=== PATIENT | female | born 1940 | race Caucasian/White ===

== ENCOUNTER 2017-01-26 13:01 | Emergency (ER) | payer MEDICARE, OTHER ==
[2017-01-26] MEDS ORDERED: PROPARACAINE HCL OPTH 15ML BTL OPTH ONE (13:27)
--- NOTE | 2017-01-26 13:37 | Emergency Department Record ---
History of Present Illness - General Chief complaint: Eye Problem Stated complaint: EYE PAIN Time Seen by Provider: 01/26/17 13:24 Source: Patient Mode of Arrival: Wheelchair Limitations: No limitations - History of Present Illness Initial comments: The patient is here due to R eye pain for 1 days. She states she has been having pain to her R forehead and scalp for a few days and then just yesterday developed a rash and swelling. She denies any visual changes with the eye but states she just cannot see due to the eyelid swelling. There is no reported photophobia, fever, ST or cough. The patient does not wear contacts. chief complaint: Eye pain Onset/Timin -: Days(s) Onset Description: Gradual Location: Right eye Place: Home If Injury: None Eye Symptoms: Discharge, Pain, Redness Severity: Severe If Pain, Quality: Aching Consistency: Constant Associated Symptoms: None Treatments Prior to Arrival: None - Related Data Visual acuity (L) = 20/: 50 Visual acuity (R) = 20/: 100 With correction: No Hx Tetanus Toxoid Vaccination: Yes Year of Tetanus Vaccination: unknown year but pt insists it is utd Home Medications Medication Instructions Recorded Confirmed Last Taken Metformin HCl 1,000 mg PO DAILY 05/18/15 01/26/17 12/02/15 Paroxetine HCl [Paxil] 20 mg PO QHS 05/18/15 01/26/17 12/01/15 Pioglitazone HCl 15 mg PO DAILY 05/18/15 01/26/17 12/02/15 Nortriptyline HCl 25 mg PO QHS 05/19/15 01/26/17 12/01/15 Bupropion HCl [Bupropion HCl Sr] 150 mg PO QHS 05/31/15 01/26/17 12/01/15 Clonidine HCl 0.2 mg PO QHS 05/31/15 01/26/17 12/01/15 Pomalidomide [Pomalyst] 3 mg PO QHS 05/31/15 01/26/17 06/29/15 Valsartan/Hydrochlorothiazide 1 each PO DAILY 05/31/15 01/26/17 12/02/15 [Diovan Hct 160-12.5 mg Tab] Previous Rx's Medication Instructions Recorded Erythromycin Base [Erythromycin 1 apply AFFEYE TID #1 tube 01/26/17 OPTH Ointment] Famciclovir 500 mg PO BID #14 tablet 01/26/17 Hydrocodone/Acetaminophen [[place] 1 each PO QID #20 tablet 01/26/17 5-325 Tablet] Allergies Allergy/AdvReac Type Severity Reaction Status Date / Time aspirin [ASPIRIN] Allergy Intermediate HIVES Verified 01/26/17 13:20 NSAIDS (Non-Steroidal Allergy Intermediate HIVES Verified 01/26/17 13:20 Anti-Inflamma [NSAIDS (NON-STEROIDAL ANTI-INFLAMMA] Penicillins [PENICILLINS] Allergy Intermediate HIVES Verified 01/26/17 13:20 Travel Screening - Travel/Exposure Within Last 30 Days Have you traveled within the last 30 days?: No Review of Systems Constitutional: Denies: Chills, Fever Eyes: Reports: Eye discharge, Eye pain Past Medical History - SOCIAL HISTORY Smoking Status: Former smoker Alcohol Use: None Drug Use: None - RESPIRATORY Hx Respiratory Disorders: No - CARDIOVASCULAR Hx Cardio Disorders: Yes Hx Abnormal EKG: No Hx Cardiac Cath: No Hx Chest Pain: No Hx CHF: Yes Hx Deep Vein Thrombosis: No Hx Edema: Yes (1+ pitting) Hx Heart Attack: No Hx Hypertension: Yes Hx Irregular Heartbeat: No Hx Palpitations: No Hx Pacemaker/Defib: No Hx Vascular Disease: No - NEURO Hx Neuro Disorders: Yes Hx Brain Tumor: No Hx CVA: Yes Hx Dementia: No Hx Dizziness: No Hx Headaches: No Hx Neuropathy: No Hx Parkinson's Disease: No Hx Seizures: No Hx Speech Problem: No Hx TIA: No - GI Hx GI Disorders: No Hx Nausea/Vomiting: Yes - Hx Genitourinary Disorders: Yes Hx UTI: Yes - ENDOCRINE Hx Endocrine Disorders: Yes Hx Diabetes: Yes (DM Type 2 uncontrolled, pt does not regularly check sugars) Hx Thyroid Disease: No - MUSCULOSKELETAL Hx Musculoskeletal Disorders: Yes Hx Arthritis: Yes (all over) Hx Back Injury: No Hx Fibromyalgia: No Hx Gout: No 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) Hx Osteoporosis: No - PSYCH Hx Psych Problems: Yes Hx Anxiety: Yes Hx Behavior Problems: No Hx Depression: Yes Hx Emotional Abuse: No Hx Sexual Abuse: No Hx Suicide Attempt: No - HEMATOLOGY/ONCOLOGY Hx Hematology/Oncology Disorders: Yes Hx Anemia: No Hx Blood Disorders: No Hx Bruising: No Hx Cancer: Yes (MULTIPLE MYELOMA) Hx Chemotherapy: Yes (pill form) Hx Radiation Therapy: Yes Hx Clotting Problems: No Hx Sickle Cell Disease: No Hx Unexplained Bleeding: No Hx Blood Transfusions: No Hx Blood Transfusion Reaction: No Family Medical History Any Significant Family History?: Yes Family Hx Comment (NOT TO BE USED IN PLACE OF ITEMS BELOW): Father of old age and pt. doesn't know what her mother of. Hx Cancer: Brother/Sister Hx Diabetes: Brother/Sister Hx Heart Disease: Brother/Sister Hx Stroke: Brother/Sister Physical Exam - General General Appearance: Alert, Oriented x3, Cooperative, No acute distress - Head Head exam: Atraumatic, Normocephalic. negative: Normal inspection (There is erythema and vesicles in the superior scalp in the V1 distribution.) - Eye Eye exam: Normal appearance, PERRL, EOMI, Periorbital swelling, Periorbital tenderness (The eyelids are very tender and edematous.), Other (There is erythema, vesicles and swelling in the R V1 dermatome. The cornea appears clear on flourescein staining.). negative: Conjunctival injection Pupils: Other (There is no pain with flashing lights in either eye.) Visual acuity (L) = 20/: 50 Visual acuity (R) = 20/: 100 With correction: No - ENT ENT exam: Other (Neg Adkins's sign.). negative: Normal exam Throat exam: Normal inspection. negative: Tonsillar erythema, Tonsillar exudate - Neck Neck exam: Normal inspection, Full ROM. negative: Tenderness Course Vital Signs 01/26/17 13:15 Temperature 98.1 F Pulse Rate 72 Respiratory 20 Rate Blood Pressure 160/76 Pulse Ox 93 L - Reevaluation(s) Reevaluation #1: I did discuss the case with the patient and discussed the Herpes Zoster that she clearly has over the R eye and forehead. I did discuss the case with Dr. Haynes and he believes the patient needs to see her PCP due to the fact the eyeball itself does not appear to be affected. I then did discuss the case with Dr. Manzano and he can see the patient in the office on Friday. 01/26/17 13:56 Disposition Disposition: Discharge Clinical Impression: Herpes zoster Qualifiers: Herpes zoster complications: unspecified herpes zoster complication Qualified Code(s): B02.8 - Zoster with other complications Disposition: Home, Self-Care Condition: (1) Good Instructions: Shingles (ED) Additional Instructions: Please take the [place], [place] Opthl Ointment and Famvir as directed. Please see your PCP in 2 days as planned. Return to the ER for any increased pain, fever, or visual changes. Prescriptions: Erythromycin Base [Erythromycin OPTH Ointment] 1 apply AFFEYE TID #1 tube Famciclovir 500 mg PO BID #14 tablet Hydrocodone/Acetaminophen [[place] 5-325 Tablet] 1 each PO QID #20 tablet Forms: Patient Portal Access Time of Disposition: 14:03 Quality - Quality Measures Quality Measures: N/A - Blood Pressure Screening View Details: Yes Blood Pressure Classification: Hypertensive Reading Systolic Measurement: 160 Diastolic Measurement: 76 Screening for High Blood Pressure: < Pre-Hypertensive BP, F/U Documented > [ G8950] Pre-Hypertensive Follow-up Interventions: Follow-up with rescreen every year.
== END 2017-01-26 14:13 | disposition home or self-care (01) ==
LOC: ER 13:01
DX: B02.8 Zoster with other complications (principal)
CPT/HCPCS: 99282

== ENCOUNTER 2017-01-27 10:58 | Emergency (ER) | payer MEDICARE, OTHER ==
[2017-01-27] MEDS ORDERED: ONDANSETRON HCL IV 4 MG/2 ML VIAL IVP ONE (11:14)
[2017-01-27] MEDS ORDERED: PROPARACAINE HCL OPTH 15ML BTL OPTH ONE (11:19)
--- NOTE | 2017-01-27 11:19 | Emergency Department Record ---
History of Present Illness - General Chief complaint: Rash Stated complaint: SHINGLES Time Seen by Provider: 01/27/17 11:14 Source: Patient Mode of Arrival: EMS Limitations: No limitations - History of Present Illness Initial comments: The patient is here due to a worsening rash to her R forehead and eye area with increasing pain. She was in the ER yesterday and was diagnosed with Herpes Zoster but was unable to get her antiviral medicine filled. Now due to the rash worsening and increased pain she decided to come to the ER. She also believes the pain is causing her to vomit. MD complaint: Rash Onset/Timin -: Days(s) Hx Tetanus Toxoid Vaccination: Yes Year of Tetanus Vaccination: unknown year but pt insists it is utd Location: Face Severity: Moderate Improves with: None Worsens with: None Context: None Associated symptoms: Nausea Treatments Prior to Arrival: Prescription analgesic - Related Data Home Medications Medication Instructions Recorded Confirmed Last Taken Metformin HCl 1,000 mg PO DAILY 05/18/15 01/27/17 01/26/17 Paroxetine HCl [Paxil] 20 mg PO QHS 05/18/15 01/27/17 01/26/17 Pioglitazone HCl 15 mg PO DAILY 05/18/15 01/27/17 01/26/17 Nortriptyline HCl 25 mg PO QHS 05/19/15 01/27/17 01/26/17 Bupropion HCl [Bupropion HCl Sr] 150 mg PO QHS 05/31/15 01/27/17 01/26/17 Clonidine HCl 0.2 mg PO QHS 05/31/15 01/27/17 01/26/17 Pomalidomide [Pomalyst] 3 mg PO QHS 05/31/15 01/27/17 01/26/17 Valsartan/Hydrochlorothiazide 1 each PO DAILY 05/31/15 01/27/17 01/26/17 [Diovan Hct 160-12.5 mg Tab] Previous Rx's Medication Instructions Recorded Erythromycin Base [Erythromycin 1 apply AFFEYE TID #1 tube 01/26/17 OPTH Ointment] Famciclovir 500 mg PO BID #14 tablet 01/26/17 Hydrocodone/Acetaminophen [[place] 1 each PO QID #20 tablet 01/26/17 5-325 Tablet] Allergies Allergy/AdvReac Type Severity Reaction Status Date / Time aspirin [ASPIRIN] Allergy Intermediate HIVES Verified 01/27/17 11:04 NSAIDS (Non-Steroidal Allergy Intermediate HIVES Verified 01/27/17 11:04 Anti-Inflamma [NSAIDS (NON-STEROIDAL ANTI-INFLAMMA] Penicillins [PENICILLINS] Allergy Intermediate HIVES Verified 01/27/17 11:04 Travel Screening - Travel/Exposure Within Last 30 Days Have you traveled within the last 30 days?: No - Travel/Exposure Within Last Year Have you traveled outside the [place] in the last year?: No - Additonal Travel Details Have you been exposed to anyone with a communicable illness?: No - Travel Symptoms Symptom Screening: None Review of Systems Constitutional: Denies: Chills, Fever Eyes: Reports: Eye pain. Denies: Eye discharge, Photophobia ENT: Denies: Congestion Respiratory: Denies: Cough Past Medical History - SOCIAL HISTORY Smoking Status: Former smoker Alcohol Use: None Drug Use: None - RESPIRATORY Hx Respiratory Disorders: No - CARDIOVASCULAR Hx Cardio Disorders: Yes Hx Abnormal EKG: No Hx Cardiac Cath: No Hx Chest Pain: No Hx CHF: Yes Hx Deep Vein Thrombosis: No Hx Edema: Yes (1+ pitting) Hx Heart Attack: No Hx Hypertension: Yes Hx Irregular Heartbeat: No Hx Palpitations: No Hx Pacemaker/Defib: No Hx Vascular Disease: No - NEURO Hx Neuro Disorders: Yes Hx Brain Tumor: No Hx CVA: Yes Hx Dementia: No Hx Dizziness: No Hx Headaches: No Hx Neuropathy: No Hx Parkinson's Disease: No Hx Seizures: No Hx Speech Problem: No Hx TIA: No - GI Hx GI Disorders: Yes Hx Nausea/Vomiting: Yes - Hx Genitourinary Disorders: Yes Hx UTI: Yes - ENDOCRINE Hx Endocrine Disorders: Yes Hx Diabetes: Yes (DM Type 2 uncontrolled, pt does not regularly check sugars) Hx Thyroid Disease: No - MUSCULOSKELETAL Hx Musculoskeletal Disorders: Yes Hx Arthritis: Yes (all over) Hx Back Injury: No Hx Fibromyalgia: No Hx Gout: No 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) Hx Osteoporosis: No - PSYCH Hx Psych Problems: Yes Hx Anxiety: Yes Hx Behavior Problems: No Hx Depression: Yes Hx Emotional Abuse: No Hx Sexual Abuse: No Hx Suicide Attempt: No - HEMATOLOGY/ONCOLOGY Hx Hematology/Oncology Disorders: Yes Hx Anemia: No Hx Blood Disorders: No Hx Bruising: No Hx Cancer: Yes (MULTIPLE MYELOMA) Hx Chemotherapy: Yes (pill form) Hx Radiation Therapy: Yes Hx Clotting Problems: No Hx Sickle Cell Disease: No Hx Unexplained Bleeding: No Hx Blood Transfusions: No Hx Blood Transfusion Reaction: No Family Medical History Any Significant Family History?: Yes Family Hx Comment (NOT TO BE USED IN PLACE OF ITEMS BELOW): Father of old age and pt. doesn't know what her mother of. Hx Cancer: Brother/Sister Hx Diabetes: Brother/Sister Hx Heart Disease: Brother/Sister Hx Stroke: Brother/Sister Physical Exam - General General Appearance: Alert, Cooperative, No acute distress - Head Head exam: Atraumatic, Normocephalic, Normal inspection - Eye Eye exam: PERRL, Conjunctival injection (Mild to the R eye.), EOMI (with no pain.), Periorbital swelling (There is moderate swelling and tenderness to the periorbital area.), Periorbital tenderness, Other (Neg flourescein uptake R eye. The anterior chamber appears clear. The patient states her vision is relatively normal when her lids are actively opened up. She states she can see with mild blurred vision. She has no photophobia.). negative: Normal appearance , Nystagmus - ENT ENT exam: negative: Normal exam (There is a vesicular erythematous rash to the R forehead and scalp and around the R eye. There is a neg Adkins's sign. It appears to be shingles.) Throat exam: Normal inspection. negative: Tonsillar erythema, Tonsillar exudate - Neck Neck exam: Normal inspection, Full ROM. negative: Tenderness - Respiratory Respiratory exam: Normal lung sounds bilaterally. negative: Respiratory distress - Cardiovascular Cardiovascular Exam: Regular rate, Normal rhythm, Normal heart sounds Course Vital Signs 01/27/17 11:07 Temperature 97.6 F Pulse Rate 75 Respiratory 18 Rate Blood Pressure 196/89 Pulse Ox 93 L - Reevaluation(s) Reevaluation #1: Unfortunately it appears we do not have any IV antivirals available so the patient will need to be transferred to another institution. She would like to go to [facility] for further evaluation because that is where her cancer doctor is at. 01/27/17 11:43 01/27/17 12:21 Reevaluation #2: I did discuss the case with Dr. Kraus at [facility] and he does accept the patient in transfer for IV acyclovir and an Opthomology consult. 01/27/17 11:49 Reevaluation #3: 01/27/17 12:20 The patient is doing much better at this time. Her pain is much improved and her nausea is gone. She is waiting on transfer comfortably. Medical Decision Making - Lab Data Result diagrams: 01/27/17 11:50 01/27/17 11:50 Disposition Disposition: Transfer Clinical Impression: Herpes zoster Qualifiers: Herpes zoster complications: unspecified herpes zoster complication Qualified Code(s): B02.8 - Zoster with other complications Disposition: Acute Care Hospital Transfer Transfer To: [facility] Reason For Transfer: Herpes Zoster Accepting Physician: Efra Time Discussed w/Accepting Physician: 12:22 Condition: (2) Stable Forms: Patient Portal Access Time of Disposition: 12:22 Quality - Quality Measures Quality Measures: N/A - Blood Pressure Screening View Details: Yes Blood Pressure Classification: Hypertensive Reading Systolic Measurement: 165 Diastolic Measurement: 91 Screening for High Blood Pressure: < Pre-Hypertensive BP, F/U Documented > [ G8950] Pre-Hypertensive Follow-up Interventions: Follow-up with rescreen every year.
[2017-01-27] MEDS ORDERED: HYDROMORPHONE HCL 1 MG/ML CPJ IVP ONE (11:27)
[2017-01-27] MEDS ORDERED: SODIUM CHLORIDE 0.9% IVPB SCH (11:30)
[2017-01-27] MEDS ORDERED: ACYCLOVIR SODIUM IVPB SCH (11:30)
[2017-01-27 11:57] LABS: BASO % 0.7 % (0-6); GRAN % 73.4 % (47-80); HEMATOCRIT 28.7 % (35.0-47.0); HEMOGLOBIN 9.1 gm/dl (11.6-16.0); LYMPH % 16.5 % (16-45); MEAN CELL VOLUME 94.1 fl (81-97); MEAN CORPUSCULAR HEMOGLOBIN 29.8 pg (27-33); MEAN CORPUSCULAR HGB CONC 31.7 g/dl (32-36); MEAN PLATELET VOLUME 11.1 fl (7.4-10.4); MONO % 6.4 % (0-9); PLATELET COUNT 195 K/uL (130-400); RED BLOOD COUNT 3.05 M/uL (3.80-5.40); RED CELL DISTRIBUTION WIDTH 19.8 % (11.5-14.5)
[2017-01-27 12:18] LABS: ALB/GLOB RATIO 0.7 (1.1-1.8); ALBUMIN 3.1 gm/dL (3.5-5.0); ANION GAP 7.8 (7-16); BILIRUBIN,TOTAL 0.96 mg/dL (0.2-1.3); CARBON DIOXIDE 27.2 mmol/L (22-30); TOTAL PROTEIN 7.3 gm/dL (6.3-8.2)
[2017-01-27] MEDS ORDERED: POTASSIUM CHLORIDE 20 MEQ TABLET PO ONE (12:20)
== END 2017-01-27 13:42 | disposition short-term general hospital (02) ==
LOC: ER 10:58
DX: B02.8 Zoster with other complications (principal); R11.0 Nausea; E11.9 Type 2 diabetes mellitus without complications; C90.00 Multiple myeloma not having achieved remission; Z79.84 Long term (current) use of oral hypoglycemic drugs; I10 Essential (primary) hypertension; Z87.891 Personal history of nicotine dependence
CPT/HCPCS: 99285 ×2; 96374; 96375; 85025; 80053; J2405; J1170

== ENCOUNTER 2017-07-15 20:46 | Emergency (ER) | payer MEDICARE, OTHER ==
[2017-07-15] MEDS ORDERED: 0.9 % SODIUM CHLORIDE 1,000 ML BAG IV ONE (20:55)
[2017-07-15] MEDS ORDERED: FENTANYL PF 100MCG/2ML VIAL IVP ONE ×2 (20:56→21:23)
[2017-07-15] MEDS ORDERED: MIDAZOLAM HCL 2MG/2ML VIAL IV ONE (20:57)
[2017-07-15] MEDS ORDERED: MIDAZOLAM HCL 50 MG in 0.9 % SODIUM CHLORIDE 100ML 100 ML IVPB SCH (21:00)
--- NOTE | 2017-07-15 21:02 | Emergency Department Record ---
History of Present Illness - General Stated Complaint: COLLAPSED UN RESPONSIVE Time Seen by Provider: 07/15/17 20:55 Source: Patient, Family Mode of Arrival: EMS Limitations: No limitations - History of Present Illness Initial Comments: 77 yo female presents after collapse and arrest. EMS was called to the house by history because the patient was too weak to get off the toilet. Upon arrival the patient was poorly responsive. She was in process of being evaluated and she arrested with no pulse or respirations. She was intubated in the field. She was given about 2-3 minutes of CPR and 1mg of epinephrine. She was transported with a pulse of 120. On arrival to the ED she was again pulseless. She was given atropine and epi in the ED and regained the pulse. The son arrived in the ED. He states the patient was a do not resuscitate. He states if she has a pulse continue supportive care but do not do CPR if she again arrests. He is aware she has cancer that is advanced. PCP is Jose Juan. He states her health has declined in the last few months. She has had treatment for multiple myeloma. She has had some diarrhea from that. No vomiting, trouble breathing or chest pain that he is aware. He states he had helped her to a cough after going to the restroom and she seemed to go limp and became poorly responsive. EMS noted azeb to asystole. No Vfib or Vtach noted by EMS. MD Complaint: Found unresponsive Place: Home Initial Findings in the Field: Agonal Associated Injuries: No Treatments Prior to Arrival: Chest compressions, Intubation, Epinephrine mgs # ( 1) - [place] Coma Scale Eye Response: (1) No response Motor Response: (1) No motor response Verbal Response: (1) No verbal response [place] Total: 3 - Symptoms of Stroke Symptom Onset Unknown: Yes - Related Data Previous Rx's Medication Instructions Recorded Erythromycin Base [Erythromycin 1 apply AFFEYE TID #1 tube 01/26/17 OPTH Ointment] Famciclovir 500 mg PO BID #14 tablet 01/26/17 Hydrocodone/Acetaminophen [[place] 1 each PO QID #20 tablet 01/26/17 5-325 Tablet] Allergies Allergy/AdvReac Type Severity Reaction Status Date / Time aspirin [ASPIRIN] Allergy Intermediate HIVES Verified 01/27/17 11:04 NSAIDS (Non-Steroidal Allergy Intermediate HIVES Verified 01/27/17 11:04 Anti-Inflamma [NSAIDS (NON-STEROIDAL ANTI-INFLAMMA] Penicillins [PENICILLINS] Allergy Intermediate HIVES Verified 01/27/17 11:04 Review of Systems ROS unobtainable: Due to endotracheal tube Past Medical History - SOCIAL HISTORY Smoking Status: Former smoker Drug Use: None - RESPIRATORY Hx Respiratory Disorders: No - CARDIOVASCULAR Hx Cardio Disorders: Yes Hx Abnormal EKG: No Hx Cardiac Cath: No Hx Chest Pain: No Hx CHF: Yes Hx Deep Vein Thrombosis: No Hx Edema: Yes (1+ pitting) Hx Heart Attack: No Hx Hypertension: Yes Hx Irregular Heartbeat: No Hx Palpitations: No Hx Pacemaker/Defib: No Hx Vascular Disease: No - NEURO Hx Neuro Disorders: Yes Hx Brain Tumor: No Hx CVA: Yes Hx Dementia: No Hx Dizziness: No Hx Headaches: No Hx Neuropathy: No Hx Parkinson's Disease: No Hx Seizures: No Hx Speech Problem: No Hx TIA: No - GI Hx GI Disorders: Yes Hx Nausea/Vomiting: Yes - Hx Genitourinary Disorders: Yes Hx UTI: Yes - ENDOCRINE Hx Endocrine Disorders: Yes Hx Diabetes: Yes (DM Type 2 uncontrolled, pt does not regularly check sugars) Hx Thyroid Disease: No - MUSCULOSKELETAL Hx Musculoskeletal Disorders: Yes Hx Arthritis: Yes (all over) Hx Back Injury: No Hx Fibromyalgia: No Hx Gout: No 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) Hx Osteoporosis: No - PSYCH Hx Psych Problems: Yes Hx Anxiety: Yes Hx Behavior Problems: No Hx Depression: Yes Hx Emotional Abuse: No Hx Sexual Abuse: No Hx Suicide Attempt: No - HEMATOLOGY/ONCOLOGY Hx Hematology/Oncology Disorders: Yes Hx Anemia: No Hx Blood Disorders: No Hx Bruising: No Hx Cancer: Yes (MULTIPLE MYELOMA) Hx Chemotherapy: Yes (pill form) Hx Radiation Therapy: Yes Hx Clotting Problems: No Hx Sickle Cell Disease: No Hx Unexplained Bleeding: No Hx Blood Transfusions: No Hx Blood Transfusion Reaction: No Family Medical History Family Hx Comment (NOT TO BE USED IN PLACE OF ITEMS BELOW): Father of old age and pt. doesn't know what her mother of. Hx Cancer: Brother/Sister Hx Diabetes: Brother/Sister Hx Heart Disease: Brother/Sister Hx Stroke: Brother/Sister Physical Exam - General General Appearance: Severe distress Limitations: Altered mental status - Head Head exam: Atraumatic, Normal inspection - ENT ENT exam: Normal exam Ear exam: Normal external inspection Nasal Exam: Normal inspection Mouth exam: Normal external inspection - Neck Neck exam: Normal inspection - Respiratory Respiratory exam: Normal lung sounds bilaterally (with BMV) - Cardiovascular Cardiovascular Exam: Other (initial asystole) - GI/Abdominal GI/Abdominal exam: Soft. negative: Tenderness - Rectal Rectal exam: Deferred - exam: Deferred - Extremities Extremities exam: Pedal edema - Neurological Neurological exam: Altered. negative: Alert, Oriented X3 - Psychiatric Psychiatric exam: Other (unrepsonsive) - Skin Skin exam: Dry, Intact, Pallor, Warm. negative: Normal color Course - Reevaluation(s) Reevaluation #1: 07/15/17 On arrival the patient was in an agonal rhythm with no respiratory effort. She was intubated in the field with bilateral breath sounds with bagging. No palpable pulse. She was given atropine and epinephrine X's one in the ED. She quickly regained a pulse after about 2 minutes of CPR in the ED. Her oxygen saturation was 100% her pulse was 120's with BP in the 160's. 07/15/17 21:38 labs reviewed. Hbg is 7.8. Prior was 8.2 Troponin 0.061 HCO3 is 15 AG is 25 Mag 1.5 Lactic Acid is 8.9 EKG sinus tachycardia, rate 119, intervals Qtc 569, axis L, ST Changes CW BBB, Prior BBB noted 12/02/15 The patient has remained stable on the vent with good oxygenation and BP not requiring and support 07/15/17 21:45 The son has been updated on events. He agrees with intubation at this time. He states her wishes would be for no aggressive measures. No CPR. No mediations to support her HR or BP. The CXR was reviewed. ETT tube was advanced 3cmEMS pre He agrees with transfer to ICU with supportive care. 07/15/17 21:47 [facility] was paged for transfer 07/15/17 21:49 ABG 100% 7.29 pH, PO2 247, PCO2 37 07/15/17 21:50 07/15/17 22:16 The HCT was negative for any acute process. Small L posterior parietal infarct. Zamarripa sinus disease. 07/15/17 22:17 INR 1.27 07/15/17 23:12 Influenza both negative UA negative for UTI Magnesium has been infused HR 83, BP 118/53 07/15/17 23:17 Recontacting [facility] for bed placement. Will repeat ABG and lactic acid while waiting 07/15/17 23:36 We were upated by [facility]. No ICU bed yet available. There is no time frame of when a bed will be availability. The son was up dated. I called [facility] for ICU bed. 07/15/17 23:49 07/15/17 23:54 [facility] now calling back with a bed assignment. The patient will be transported to [facility] 07/15/17 23:55 07/16/17 00:03 Repeat Lactic Acid is 2.5 07/16/17 00:23 EMS present in the ED for preparation for transfer to [facility] The patient remains stable on the vent, IVF, Versed drip Medical Decision Making - Management Options MDM Management: Additional Work-up Planned (e.g. ADM/Transfer/OP Study) - Data Complexity MDM Data: Labs Ordered and/or Reviewed, X-Ray Ordered and/or Reviewed, EKG Ordered and/or Reviewed, Independent Visualization of Image, Tracing, or Specimen, Discussion of Test Results With Performing Physician, Decision to Obtain Old Record, Review and Summary of Old Record Discussed - Lab Data Result diagrams: 07/15/17 21:05 07/15/17 21:05 - EKG Data -: EKG Interpreted by Me - Radiology Data Radiology results: Report reviewed, Image reviewed Critical Care Time Critical Care Time: Yes Total Critical Care Time: 90 Critical Care Time: See continued care timeline for details Disposition Disposition: Transfer Clinical Impression: Cardiac arrest, Acute respiratory failure Disposition: Acute Care Hospital Transfer Transfer To: [facility] Reason For Transfer: ICU, intubated Accepting Physician: Breanne Time Discussed w/Accepting Physician: 21:00 Condition: (5) Critical Forms: Patient Portal Access Time of Disposition: 21:46 Quality - Quality Measures Quality Measures: N/A - Blood Pressure Screening Does Patient Have Any of the Following: No Blood Pressure Classification: Hypertensive Reading Systolic Measurement: 145 Diastolic Measurement: 66 Screening for High Blood Pressure: < Pre-Hypertensive BP, F/U Documented > [ G8950] Pre-Hypertensive Follow-up Interventions: Referral to alternative/primary care provider.
[2017-07-15 21:07] LABS: HEMOGLOBIN 7.8 gm/dl (11.6-16.0); MEAN CELL VOLUME 105.1 fl (81-97); MEAN CORPUSCULAR HEMOGLOBIN 30.3 pg (27-33); MEAN CORPUSCULAR HGB CONC 28.9 g/dl (32-36); MEAN PLATELET VOLUME 11.5 fl (7.4-10.4); PLATELET COUNT 252 K/uL (130-400); RED BLOOD COUNT 2.57 M/uL (3.80-5.40); RED CELL DISTRIBUTION WIDTH 19.4 % (11.5-14.5); WHITE BLOOD COUNT W/O DIFF 5.7 K/uL (4.2-12.2)
[2017-07-15 21:26] LABS: ALB/GLOB RATIO 0.5 (1.1-1.8); ALBUMIN 2.5 g/dL (4.0-5.0); BILIRUBIN,TOTAL 0.4 mg/dL (0.2-1.0); CREATININE 1.9 mg/dL (0.5-0.9); TOTAL PROTEIN 7.1 g/dL (6.6-8.7)
[2017-07-15 21:33] LABS: LACTIC ACID 8.9 mmol/L (0.5-2.2)
[2017-07-15] MEDS ORDERED: MAGNESIUM SULFATE 16 MEQ in 0.9 % SODIUM CHLORIDE 100ML 100 ML IV ONE (21:41)
[2017-07-15 21:45] LABS: ARTERIAL BLOOD GAS BASE EXCESS -7.9 mmol/L (-2 - 3); ARTERIAL BLOOD GAS HCO3 17.5 mmol/L (18-23); ARTERIAL BLOOD GAS PCO2 37.2 mmHg (35-48); ARTERIAL BLOOD GAS pH 7.29 (7.35-7.45); CARBOXYHEMOGLOBIN 1.6 % (0-1.5); O2 HEMOGLOBIN 99.3 % vol (94-99); TOTAL HEMOGLOBIN 7.3 g/dl (11.6-16)
[2017-07-15 21:46] LABS: ALLEN TEST PASS
[2017-07-15 22:10] LABS: INR 1.27; PARTIAL THROMBOPLASTIN TIME 33.5 SECONDS (24.5-39.1); PROTHROMBIN TIME (PATIENT) 13.8 SECONDS (9.5-12.1)
[2017-07-15 22:33] LABS: URINE APPEARANCE SL CLOUDY; URINE BILIRUBIN NEGATIVE (NEGATIVE); URINE BLOOD MODERATE (NEGATIVE); URINE COLOR YELLOW; URINE GLUCOSE (UA) NEGATIVE (NEGATIVE); URINE KETONE NEGATIVE (NEGATIVE); URINE LEUKOCYTE ESTERASE TRACE (NEGATIVE); URINE NITRITE NEGATIVE (NEGATIVE); URINE PROTEIN TRACE (NEGATIVE); URINE UROBILINOGEN 0.2 E.U./dL (0.20 - 1.00)
[2017-07-15 22:46] LABS: URINE BACTERIA FEW
[2017-07-15 22:53] LABS: INFLUENZA A NEGATIVE (NEGATIVE); INFLUENZA B NEGATIVE (NEGATIVE)
[2017-07-15] MEDS ORDERED: 0.9 % SODIUM CHLORIDE 1000ML 1,000 ML IV ONE (23:13)
[2017-07-15 23:34] LABS: ARTERIAL BLD GAS O2 SATURATION 100.5 % (95-98); ARTERIAL BLOOD GAS HCO3 22.3 mmol/L (18-23); ARTERIAL BLOOD GAS PCO2 38.5 mmHg (35-48); ARTERIAL BLOOD GAS pH 7.38 (7.35-7.45); CARBOXYHEMOGLOBIN 1.6 % (0-1.5); METHEMOGLOBIN 0.1 % (0.0-1.5); TOTAL HEMOGLOBIN 7.1 g/dl (11.6-16)
[2017-07-15 23:35] LABS: ALLEN TEST PASS
[2017-07-16] MEDS ORDERED: FENTANYL PF 100MCG/2ML VIAL IVP ONE (00:32)
--- NOTE | 2017-07-16 19:31 | RADIOLOGY REPORT ---
EXAM: CHEST AP or PA ONLY HISTORY: RESPIRATORY FAILURE. TECHNIQUE: A single AP view of the chest was performed. FINDINGS: Endotracheal tube in satisfactory position. There is cardiomegaly with mild pulmonary vascular congestion. Right [id number] catheter in place. IMPRESSION: 1. ENDOTRACHEAL TUBE IN SATISFACTORY POSITION. 2. CARDIOMEGALY WITH MILD CONGESTION. JOB NUMBER: [id number] MTDD
--- NOTE | 2017-07-16 19:36 | CT SCAN REPORT ---
EXAM: CT SCAN HEAD WO CONTRAST HISTORY: MENTAL STATUS CHANGE. COMPARISON: 12/02/2015. 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 No new large territorial infarct, hemorrhage, mass effect, or midline shift is appreciated. No extraaxial fluid collection. There is pansinus disease. There are air-fluid levels in the maxillary sinus. Nasogastric tube and endotracheal tube are in place. IMPRESSION: 1. NO ACUTE INTRACRANIAL ABNORMALITY IS APPRECIATED. 2. PANSINUS DISEASE WITH AIR-FLUID LEVELS IN THE MAXILLARY SINUS. 3. 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 JOB NUMBER: [id number] MTDD
== END 2017-07-16 00:41 | disposition short-term general hospital (02) ==
LOC: ER 20:46
DX: J96.00 Acute respiratory failure, unspecified whether with hypoxia or hypercapnia (principal); I46.9 Cardiac arrest, cause unspecified; I50.9 Heart failure, unspecified; I10 Essential (primary) hypertension; E11.9 Type 2 diabetes mellitus without complications; Z87.891 Personal history of nicotine dependence
CPT/HCPCS: 36600; 70450; 71010; 80053; 81001; 82375; 82803; 83605; 83735; 84484; 85027; 85610; 85730; 87400; 92950; 93005; 93010; 94002; 96365; 96375; 96376; 99291; 99292; J7030